=== PATIENT | male | born 1990 | race Caucasian/White ===

== ENCOUNTER 2024-07-21 13:47 | Outpatient (CLI) | payer OTHER ==
[~2024-07-21 13:47] MED LIST: LEVSIN/SL0.125 MG SL; PEPCID AC20 MG PO
== END 2024-07-21 14:01 | disposition home or self-care (01) ==
LOC: TOM 13:47
DX: Z12.2 Encounter for screening for malignant neoplasm of respiratory organs (principal); G44.52 New daily persistent headache (NDPH)

== ENCOUNTER 2024-10-09 14:53 | Outpatient (CLI) | payer OTHER | END 2024-10-09 14:55 | disposition home or self-care (01) | LOC: TOM 14:53 | DX: K01.1 Impacted teeth (principal) ==